=== PATIENT | female | born 1950 | race African-American/Black ===

== ENCOUNTER 2019-04-23 07:49 | Emergency (ER) | payer MEDICARE, OTHER ==
[~2019-04-23] VITALS: Ht 175.3 cm; Wt 89.4 kg
[~2019-04-23 07:49] MED LIST: AML5T PO; ASPI-231 PO; CARI-277 PO; DIA5T PO; DULO30CA2 PO; FLUT250M2 IN; FLUT50SP13; HYDR25TA4 PO; TIOTCAP IN; [UNRECOGNIZED DRUG - CODE] PO; [UNRECOGNIZED DRUG - CODE] PO
[2019-04-23] MEDS ORDERED: ALBUTEROL SULF 2.5 MG/0.5ML(0.5%) NEB SOLN NEB ONE (08:15)
[2019-04-23] MEDS ORDERED: IPRATROPIUM BROM 0.5 MG/2.5ML INH SOL NEB ONE (08:15)
[2019-04-23 08:18] VITALS: BP 118/50
[2019-04-23] MEDS ORDERED: HYDROcodone-ACET 10/325MG TAB PO ONE (08:45)
== END 2019-04-23 09:19 | disposition home or self-care (01) ==
LOC: EDBD 07:49 → ER 07:51
DX: C34.90 Malignant neoplasm of unspecified part of unspecified bronchus or lung (principal); J44.9 Chronic obstructive pulmonary disease, unspecified; I10 Essential (primary) hypertension; Z90.49 Acquired absence of other specified parts of digestive tract; Z90.710 Acquired absence of both cervix and uterus
CPT/HCPCS: 71045; 93005; 94640; 99284; J7611; J7644

== ENCOUNTER 2020-03-01 09:14 | Inpatient (IN) | payer MEDICARE, OTHER ==
[~2020-03-01] VITALS: Ht 167.6 cm; Wt 67.8 kg
[2020-03-01] MEDS ORDERED: SODIUM CHLORIDE 0.9% 1,000 ML IV ONE (10:18)
[2020-03-01] MEDS ORDERED: SODIUM CHLORIDE 0.9% 500 ML IVB ONE (10:18)
[2020-03-01 10:48] LABS: Urine Bacteria FEW /hpf (None Seen); Urine Blood Negative /uL (Negative); Urine Specific Gravity 1.023 (1.001-1.035); Urine WBC 6 /hpf (0 - 5)
[2020-03-01 11:12] LABS: Alcohol, Urine < 3.0 mg/dL (0-10); Amphetamine Screen, Urine NEGATIVE (NEGATIVE); Barbiturate Scree,Urine NEGATIVE (NEGATIVE); Benzodiazephine Screen, Urine POSITIVE (NEGATIVE); Cannabinoid Screen, Urine NEGATIVE (NEGATIVE); Cocaine Screen, Urine NEGATIVE (NEGATIVE); Opiate Scree,Urine POSITIVE (NEGATIVE); Phencyclidine Screen, Urine NEGATIVE (NEGATIVE)
[2020-03-01] MEDS ORDERED: KETOROLAC TROMETH 30 MG/ML 1ML VIAL IV ONE ×2 (11:45→12:00)
[2020-03-01] MEDS ORDERED: HALOPERIDOL LACTATE 5 MG/ML INJ VIAL IM ONE (12:00)
[2020-03-01] MEDS ORDERED: LEVE100012 PO (12:36)
[2020-03-01 13:54] LABS: Basophils # (auto) 0 10 ^3/uL (0-0.2); Eosinophils # (auto) 0 10 ^3/uL (0-0.8); Hemoglobin 11.6 g/dL (12.2-16.2); Lymphocytes # (auto) 0.8 10 ^3/uL (0.4-5.4); Mean Corpuscular Hemoglobin 35.7 pg (28.0-32.0); Monocytes # (auto) 0.5 10 ^3/uL (0-1.3); Red Blood Cells 3.26 10^6/uL (4.0-5.20)
[2020-03-01 13:56] LABS: Basophils % (auto) 0.4 % (0.0-2.0); Eosinophils % (auto) 0.1 % (0.0-7.0); Hematocrit 34.3 % (36.0-46.0); Lymphocytes % (auto) 13.3 % (10.0-50.0); Mean Corpuscular Hgb Conc. 33.9 g/dL (32.0-36.0); Mean Corpuscular Volume 105.4 fL (80.0-100.0); Monocytes % (auto) 8.8 % (0.0-12.0); Neutrophils # (auto) 4.4 10 ^3/uL (1.6-8.6); Neutrophils % (auto) 77.4 % (37.0-80.0); Nucleated Red Blood Cells % 0.2 %; Platelet Count (auto) 155 10^3/uL (140-450); Red Cell Distribution Width 17.9 % (11.8-14.3); White Blood Cell 5.7 10^3/uL (4.4-10.8)
[2020-03-01 14:09] LABS: INR 1.09 (0.9-1.15); Partial Thromboplastin Time 24.2 sec (23.64-32.05)
[2020-03-01 14:11] LABS: Albumin 2.6 g/dL (3.4-5.0); Anion Gap 5 (5-15); Calcium 8.4 mg/dL (8.5-10.1); Carbon Dioxide 29 mmol/L (21-32); Chloride 105 mmol/L (98-107); Glucose 98 mg/dL (74-106); Magnesium 1.2 mg/dL (1.6-2.6); Sodium 139 mmol/L (136-145)
[2020-03-01] MEDS ORDERED: cefTRIAXone 1GM/50ML D5W 50 ML IV ONE (14:15)
[2020-03-01 14:18] LABS: Alanine Aminotransferase 42 U/L (13-56); Alkaline Phosphatase 313 U/L (45-117); Aspartate Aminotransferase 38 U/L (15-37); BUN/Creatinine Ratio 28.6; Bilirubin, Total 0.6 mg/dL (0.2-1.0); Blood Alcohol < 3.0 mg/dL (0-5); Blood Urea Nitrogen 12 mg/dL (7-18); GFR African American 192 mL/min; GFR Non-African American 159 mL/min; Total Protein 6.1 g/dL (6.4-8.2)
[2020-03-01 14:22] LABS: Potassium 2.5 mmol/L (3.5-5.1)
[2020-03-01] MEDS ORDERED: POTASSIUM EFFERVESENT TAB 25 MEQ PO ONE (15:15)
[2020-03-01] MEDS: MAGNESIUM SULFATE 1GM/100ML 100 ML IV SCH ×3 (16:03→22:39)
[2020-03-01] MEDS ORDERED: LABETALOL HCL 5 MG/ML ML 20ML VIAL IV PRN (16:15)
[2020-03-01] MEDS ORDERED: traMADol HCL 50 MG TAB PO PRN (16:15)
[2020-03-01] MEDS ORDERED: MORPHINE SULF INJ 2 MG/ML SYRINGE 1ML IV PRN (16:15)
[2020-03-01] MEDS ORDERED: NITROGLYCERIN 0.4 MG SL TAB SL PRN (16:15)
[2020-03-01] MEDS ORDERED: ACETAMINOPHEN 500 MG TAB PO PRN (16:15)
[2020-03-01] MEDS: SOD CHL 0.9%/ KCL 40MEQ 1,000 ML IV SCH (16:57)
[2020-03-01] MEDS: POTASSIUM CHL 20MEQ/100ML 100 ML IV SCH ×3 (16:58→23:25)
[2020-03-01] MEDS ORDERED: LORazepam 2MG/ML-1ML VIAL IV PRN (21:00)
[2020-03-02 01:00] VITALS: BP 146/59
[2020-03-02] MEDS: FAMOTIDINE 20 MG TAB PO SCH ×3 (01:30→22:00)
[2020-03-02] MEDS ORDERED: levETIRAcetam 500 MG/5ML INJ IV ONE (01:37)
[2020-03-02] MEDS: SOD CHL 0.9%/ KCL 40MEQ 1,000 ML IV SCH ×4 (04:23→22:15)
[2020-03-02 05:00] VITALS: BP 129/74
[2020-03-02 07:29] LABS: Basophils # (auto) 0 10 ^3/uL (0-0.2); Eosinophils # (auto) 0 10 ^3/uL (0-0.8); Mean Corpuscular Hemoglobin 35.8 pg (28.0-32.0); Mean Corpuscular Hgb Conc. 34.2 g/dL (32.0-36.0); Monocytes # (auto) 0.6 10 ^3/uL (0-1.3); Red Cell Distribution Width 17.5 % (11.8-14.3)
[2020-03-02 07:31] LABS: Basophils % (auto) 0.2 % (0.0-2.0); Eosinophils % (auto) 0.1 % (0.0-7.0); Hematocrit 36.2 % (36.0-46.0); Hemoglobin 12.4 g/dL (12.2-16.2); Lymphocytes # (auto) 0.6 10 ^3/uL (0.4-5.4); Mean Corpuscular Volume 104.8 fL (80.0-100.0); Monocytes % (auto) 7.7 % (0.0-12.0); Neutrophils # (auto) 6.1 10 ^3/uL (1.6-8.6); Nucleated Red Blood Cells % 0.2 %; Platelet Count (auto) 173 10^3/uL (140-450); Red Blood Cells 3.45 10^6/uL (4.0-5.20); White Blood Cell 7.2 10^3/uL (4.4-10.8)
[2020-03-02 07:51] LABS: Albumin 2.7 g/dL (3.4-5.0); Calcium 8.2 mg/dL (8.5-10.1); Potassium 3.1 mmol/L (3.5-5.1)
[2020-03-02 07:56] LABS: BUN/Creatinine Ratio 13.6; Bilirubin, Total 0.8 mg/dL (0.2-1.0); Total Protein 6.4 g/dL (6.4-8.2)
[2020-03-02 09:00] VITALS: BP 119/60
[2020-03-02 09:49] LABS: Folate (Folic Acid) 16.13 ng/mL (5.38-24)
[2020-03-02] MEDS: cefTRIAXone 1GM/50ML D5W 50 ML IV SCH (10:14)
[2020-03-02] MEDS: ENOXAPARIN SOD 40 MG/0.4 ML SYRINGE SC SCH (10:15)
[2020-03-02] MEDS: ASPirin 81 mg TAB PO SCH (10:15)
[2020-03-02 12:35] VITALS: BP 139/66
[2020-03-02 17:00] VITALS: BP 136/87
[2020-03-02 22:00] VITALS: BP 95/40
[2020-03-03 05:00] VITALS: BP 140/76
[2020-03-03] MEDS: SOD CHL 0.9%/ KCL 40MEQ 1,000 ML IV SCH ×2 (06:12→18:09)
[2020-03-03 06:58] LABS: Basophils # (auto) 0 10 ^3/uL (0-0.2); Eosinophils # (auto) 0 10 ^3/uL (0-0.8); Monocytes # (auto) 0.8 10 ^3/uL (0-1.3); Neutrophils # (auto) 6.4 10 ^3/uL (1.6-8.6); White Blood Cell 8.2 10^3/uL (4.4-10.8)
[2020-03-03 06:59] LABS: Basophils % (auto) 0.2 % (0.0-2.0); Eosinophils % (auto) 0.1 % (0.0-7.0); Hematocrit 37.4 % (36.0-46.0); Hemoglobin 12.9 g/dL (12.2-16.2); Lymphocytes % (auto) 12.5 % (10.0-50.0); Mean Corpuscular Hemoglobin 36.1 pg (28.0-32.0); Mean Corpuscular Hgb Conc. 34.6 g/dL (32.0-36.0); Mean Corpuscular Volume 104.3 fL (80.0-100.0); Monocytes % (auto) 9.4 % (0.0-12.0); Neutrophils % (auto) 77.8 % (37.0-80.0); Platelet Count (auto) 178 10^3/uL (140-450); Red Blood Cells 3.58 10^6/uL (4.0-5.20); Red Cell Distribution Width 17.2 % (11.8-14.3)
[2020-03-03 07:13] LABS: BUN/Creatinine Ratio 12.5; Calcium 8.1 mg/dL (8.5-10.1); Magnesium 1.7 mg/dL (1.6-2.6); Potassium 3.6 mmol/L (3.5-5.1)
[2020-03-03] MEDS: cefTRIAXone 1GM/50ML D5W 50 ML IV SCH (09:05)
[2020-03-03] MEDS: ASPirin 81 mg TAB PO SCH (10:00)
[2020-03-03] MEDS: FAMOTIDINE 20 MG TAB PO SCH ×2 (10:00→21:44)
[2020-03-03] MEDS: ENOXAPARIN SOD 40 MG/0.4 ML SYRINGE SC SCH (10:55)
[2020-03-03 12:00] VITALS: BP 141/64
[2020-03-03] MEDS: METOPROLOL TARTRATE 25 MG TAB PO SCH (21:43)
[2020-03-03 22:00] VITALS: BP 121/65
[2020-03-04] MEDS: SOD CHL 0.9%/ KCL 40MEQ 1,000 ML IV SCH ×2 (03:39→17:24)
[2020-03-04 05:49] VITALS: BP 119/59
[2020-03-04 07:10] LABS: Basophils # (auto) 0 10 ^3/uL (0-0.2); Eosinophils # (auto) 0 10 ^3/uL (0-0.8); Mean Corpuscular Volume 104.9 fL (80.0-100.0); Monocytes # (auto) 1.1 10 ^3/uL (0-1.3); Neutrophils # (auto) 6.5 10 ^3/uL (1.6-8.6); White Blood Cell 8.3 10^3/uL (4.4-10.8)
[2020-03-04 07:13] LABS: Basophils % (auto) 0.4 % (0.0-2.0); Eosinophils % (auto) 0.1 % (0.0-7.0); Hematocrit 35.8 % (36.0-46.0); Hemoglobin 12.4 g/dL (12.2-16.2); Lymphocytes # (auto) 0.7 10 ^3/uL (0.4-5.4); Mean Corpuscular Hemoglobin 36.3 pg (28.0-32.0); Mean Corpuscular Hgb Conc. 34.6 g/dL (32.0-36.0); Monocytes % (auto) 13.1 % (0.0-12.0); Neutrophils % (auto) 78.4 % (37.0-80.0); Platelet Count (auto) 158 10^3/uL (140-450); Red Blood Cells 3.41 10^6/uL (4.0-5.20); Red Cell Distribution Width 17.1 % (11.8-14.3)
[2020-03-04 07:28] LABS: Calcium 7.7 mg/dL (8.5-10.1); Potassium 3.8 mmol/L (3.5-5.1)
[2020-03-04 09:00] VITALS: BP_SYST 108; BP_SYST 144; BP_DIAS 65; BP_DIAS 71
[2020-03-04] MEDS: cefTRIAXone 1GM/50ML D5W 50 ML IV SCH (09:14)
[2020-03-04] MEDS: ENOXAPARIN SOD 40 MG/0.4 ML SYRINGE SC SCH (09:14)
[2020-03-04] MEDS: METOPROLOL TARTRATE 25 MG TAB PO SCH ×2 (10:00→22:00)
[2020-03-04] MEDS: ASPirin 81 mg TAB PO SCH (10:00)
[2020-03-04] MEDS: FAMOTIDINE 20 MG TAB PO SCH ×2 (10:00→22:00)
[2020-03-04 13:00] VITALS: BP 126/61
[2020-03-04 17:00] VITALS: BP 126/56
[2020-03-04 17:06] VITALS: BP 126/56
[2020-03-04] MEDS: AMPICILLIN INJ 1 GM in SODIUM CHL 0.9% 50 ML IV SCH (17:34)
[2020-03-04] MEDS: LORazepam 2MG/ML-1ML VIAL IV PRN ×2 (20:54→21:00)
[2020-03-04 22:00] VITALS: BP 122/70
[2020-03-05] MEDS: SOD CHL 0.9%/ KCL 40MEQ 1,000 ML IV SCH ×3 (00:15→20:15)
[2020-03-05 04:37] VITALS: BP 116/76
[2020-03-05 04:45] LABS: Basophils # (auto) 0 10 ^3/uL (0-0.2); Eosinophils # (auto) 0 10 ^3/uL (0-0.8); Eosinophils % (auto) 0.2 % (0.0-7.0); Hemoglobin 11.9 g/dL (12.2-16.2); Lymphocytes # (auto) 0.4 10 ^3/uL (0.4-5.4); Mean Corpuscular Volume 106.3 fL (80.0-100.0); Monocytes # (auto) 0.8 10 ^3/uL (0-1.3); White Blood Cell 8.8 10^3/uL (4.4-10.8)
[2020-03-05 04:47] LABS: Basophils % (auto) 0.5 % (0.0-2.0); Hematocrit 35.1 % (36.0-46.0); Lymphocytes % (auto) 4.9 % (10.0-50.0); Mean Corpuscular Hemoglobin 36.2 pg (28.0-32.0); Mean Corpuscular Hgb Conc. 34.1 g/dL (32.0-36.0); Monocytes % (auto) 9.5 % (0.0-12.0); Neutrophils # (auto) 7.4 10 ^3/uL (1.6-8.6); Neutrophils % (auto) 84.9 % (37.0-80.0); Platelet Count (auto) 145 10^3/uL (140-450); Red Cell Distribution Width 17.2 % (11.8-14.3)
[2020-03-05 05:05] LABS: BUN/Creatinine Ratio 21.4; Calcium 7.9 mg/dL (8.5-10.1); Potassium 3.3 mmol/L (3.5-5.1)
[2020-03-05] MEDS: AMPICILLIN INJ 1 GM in SODIUM CHL 0.9% 50 ML IV SCH ×5 (05:12→23:48)
[2020-03-05 09:00] VITALS: BP 121/64
[2020-03-05] MEDS: FAMOTIDINE 20 MG TAB PO SCH ×2 (09:07→21:14)
[2020-03-05] MEDS: ASPirin 81 mg TAB PO SCH (09:07)
[2020-03-05] MEDS: ENOXAPARIN SOD 40 MG/0.4 ML SYRINGE SC SCH (09:07)
[2020-03-05] MEDS: METOPROLOL TARTRATE 25 MG TAB PO SCH ×2 (09:08→21:16)
[2020-03-05] MEDS ORDERED: POTASSIUM CHLORIDE 20 MEQ, LIDOCAINE 1% (LOCAL ANESTH.) 2 ML in SODIUM CHL 0.9% 100 ML IV ONE (09:45)
[2020-03-05 13:00] VITALS: BP 137/89
[2020-03-05 17:00] VITALS: BP 123/68
[2020-03-05 22:00] VITALS: BP 117/93
[2020-03-05] MEDS: levETIRAcetam 500 MG/5ML INJ IV ONE ×2 (23:22→23:25)
[2020-03-06 04:59] VITALS: BP 158/48
[2020-03-06] MEDS: SOD CHL 0.9%/ KCL 40MEQ 1,000 ML IV SCH ×2 (05:23→15:20)
[2020-03-06] MEDS: AMPICILLIN INJ 1 GM in SODIUM CHL 0.9% 50 ML IV SCH ×3 (05:31→18:48)
[2020-03-06 05:45] LABS: BUN/Creatinine Ratio 16.3; Calcium 8.1 mg/dL (8.5-10.1); Potassium 4.5 mmol/L (3.5-5.1)
[2020-03-06 08:05] VITALS: BP 148/111
[2020-03-06 09:00] VITALS: BP 148/111
[2020-03-06] MEDS: LORazepam 2MG/ML-1ML VIAL IV PRN ×2 (09:01→18:57)
[2020-03-06] MEDS: ENOXAPARIN SOD 40 MG/0.4 ML SYRINGE SC SCH (10:15)
[2020-03-06] MEDS: METOPROLOL TARTRATE 25 MG TAB PO SCH ×2 (10:17→22:00)
[2020-03-06] MEDS: FAMOTIDINE 20 MG TAB PO SCH ×2 (10:17→22:00)
[2020-03-06] MEDS: ASPirin 81 mg TAB PO SCH (10:18)
[2020-03-06 13:00] VITALS: BP 135/60
[2020-03-06 17:00] VITALS: BP 105/44
[2020-03-06] MEDS ORDERED: METOPROLOL TARTRATE 1MG/1ML-5ML VIAL IV PRN (20:45)
[2020-03-06 22:00] VITALS: BP 128/88
[2020-03-06] MEDS: VALPROATE INJ 500 MG in SODIUM CHL 0.9% 100 ML IV SCH (23:11)
[2020-03-07] MEDS: AMPICILLIN INJ 1 GM in SODIUM CHL 0.9% 50 ML IV SCH ×3 (00:29→11:55)
[2020-03-07] MEDS: SOD CHL 0.9%/ KCL 40MEQ 1,000 ML IV SCH ×2 (02:20→12:15)
[2020-03-07] MEDS: LORazepam 2MG/ML-1ML VIAL IV PRN (04:12)
[2020-03-07 05:00] VITALS: BP 148/67
[2020-03-07] MEDS: VALPROATE INJ 500 MG in SODIUM CHL 0.9% 100 ML IV SCH ×2 (05:32→14:38)
[2020-03-07] MEDS ORDERED: IPRATROPIUM BROM 0.5 MG/2.5ML INH SOL NEB PRN (07:00)
[2020-03-07] MEDS ORDERED: ALBUTEROL SULF 2.5 MG/0.5ML(0.5%) NEB SOLN NEB PRN (07:00)
[2020-03-07 08:00] VITALS: BP 115/42
[2020-03-07 09:52] VITALS: BP 115/42
[2020-03-07] MEDS ORDERED: METOPROLOL TARTRATE 25 MG TAB PO SCH (10:00)
[2020-03-07] MEDS: ASPirin 81 mg TAB PO SCH (10:00)
[2020-03-07] MEDS: FAMOTIDINE 20 MG TAB PO SCH (10:00)
[2020-03-07] MEDS: ENOXAPARIN SOD 40 MG/0.4 ML SYRINGE SC SCH (10:23)
[2020-03-07 12:00] VITALS: BP 137/27
== END 2020-03-07 16:21 | disposition hospice, home (50) | DRG 100 ==
LOC: ER 09:14 → EDBD 09:14 → TELE 09:15 → TELE-CENTR 22:38
PROVIDERS: ADMIT Internal Medicine; ATTEND Internal Medicine
DX: G40.901 Epilepsy, unspecified, not intractable, with status epilepticus (principal); G93.41 Metabolic encephalopathy; C34.90 Malignant neoplasm of unspecified part of unspecified bronchus or lung; N39.0 Urinary tract infection, site not specified; C79.31 Secondary malignant neoplasm of brain; E44.0 Moderate protein-calorie malnutrition; E87.1 Hypo-osmolality and hyponatremia; I47.2 Ventricular tachycardia; D61.818 Other pancytopenia; C79.51 Secondary malignant neoplasm of bone; Z51.5 Encounter for palliative care; Z66 Do not resuscitate; E87.6 Hypokalemia; E83.42 Hypomagnesemia; E66.9 Obesity, unspecified; I10 Essential (primary) hypertension; D50.9 Iron deficiency anemia, unspecified; E78.5 Hyperlipidemia, unspecified; F17.200 Nicotine dependence, unspecified, uncomplicated; G47.33 Obstructive sleep apnea (adult) (pediatric); I25.10 Atherosclerotic heart disease of native coronary artery without angina pectoris; I35.8 Other nonrheumatic aortic valve disorders; J44.9 Chronic obstructive pulmonary disease, unspecified; Z79.51 Long term (current) use of inhaled steroids; Z79.899 Other long term (current) drug therapy; Z82.3 Family history of stroke; Z85.118 Personal history of other malignant neoplasm of bronchus and lung; Z85.3 Personal history of malignant neoplasm of breast; Z86.73 Personal history of transient ischemic attack (TIA), and cerebral infarction without residual deficits; Z90.49 Acquired absence of other specified parts of digestive tract; Z90.710 Acquired absence of both cervix and uterus; Z88.8 Allergy status to other drugs, medicaments and biological substances; Z79.82 Long term (current) use of aspirin; Z20.828 Contact with and (suspected) exposure to other viral communicable diseases; Z68.26 Body mass index [BMI] 26.0-26.9, adult
CPT/HCPCS: 36415; 70450; 71045; 80048; 80053; 80307; 80320; 81001; 82550; 82607; 82746; 83735; 84443; 84484; 85025; 85610; 85730; 87040; 87086; 87088; 87186; 92610; 93005; 93306; 94640; 97110; G0378; J0696; J1885; J2001; J3480; J7060